=== PATIENT | male | born 1970 | race Two or more races ===

== ENCOUNTER 2024-03-20 19:42 | Emergency (ER) | payer OTHER ==
[~2024-03-20] VITALS: Ht 170.2 cm; Wt 72.6 kg
[2024-03-20 20:02] VITALS: BP 124/79; TEMP 98.6
[2024-03-20 20:30] VITALS: O2SAT 98
== END 2024-03-20 21:39 ==
LOC: ER 19:44
DX: R53.1 Weakness (principal); F19.139 Other psychoactive substance abuse with withdrawal, unspecified; I10 Essential (primary) hypertension; E11.9 Type 2 diabetes mellitus without complications; Z59.00 Homelessness unspecified